=== PATIENT | female | born 1985 | race Caucasian/White ===

== ENCOUNTER 2018-07-16 10:42 | Inpatient (IN) | payer OTHER ==
[~2018-07-16] VITALS: Ht 177.8 cm; Wt 123.4 kg
[~2018-07-16 10:42] MED LIST: VITA1CAP48 PO
[2018-07-16] MEDS ORDERED: LR(*) 1000 ML BAG 1,000 ML IV PRN (10:44)
[2018-07-16 11:00] VITALS: BP 176/114; Ht 177.8 cm; Wt 123.4 kg
[2018-07-16] MEDS ORDERED: MISOPROSTOL 100 MCG TAB PV ONE (11:00)
[2018-07-16] MEDS ORDERED: MISOPROSTOL 200 MCG TAB PV ONE ×2 (11:15→17:40)
[2018-07-16 11:33] LABS: PLATELET COUNT, AUTOMATED 240 K/uL (150-450)
--- NOTE | 2018-07-16 11:48 | History & Physical ---
History of Present Illness Chief Complaint demise History of Present Illness 33-year-old at 26w2d by LMP presents to discuss possible transfer of care in . She is also having off-and-on spotting since 16 weeks. Her prenata care so far has been with [facility] in [place]. She has a strange description of her care so far. She has never felt movement. She has no preeclampsia symptoms. At 16 weeks, she had an ultrasound due to bleeding. She was diagnosed with a subchorionic hemorrhage at that time. Her next follow-up was at 20 weeks, when she had her anatomical ultrasound. She reports she was unable to hear the heart rate at that visit. The special procedures tech reportedly could not identify multiple aspects of the baby, such as the brain and cord. However, the physician informed the patient that this would not be necessary to view. She has not had a visit since that time which was 6 weeks ago. She is still having off-and-on brown spotting. She denies any fevers or chills. She denies any pelvic pain. She does have one adopted son, Drake. She and her went through this adoption process and had multiple last minute change of mines with potential babies. They had initially planned to adopt another child, but did not feel emotionally prepared for that process again. Therefore, they stopped control and were able to conceive within 2 months. 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 Willem, her , works in admission at [employer]. records reviewed: LMP 01/13/18 10wk US shows size consistent with EDC by LMP 16wk US shows BRIANDA with FCA 20wk US shows normal anatomy except inability to visualized intracranial anatomy or cord insertion; no FCA documented Blood pressures: 128/84 (03/21) and 130/86 (06/04) Prepregnancy weight 280# History Patient's Blood Type: A Positive Rubella Status: Unknown Group B Strep Screen: Unknown Obstetrical History: (has one adopted child) Past Medical History: PMH: Obesity PSH: [place] tooth, stefania, bone surgery Allergies: Coded Allergies: No Known Drug Allergies (Unverified , 01/08/14) Social History: No T/E/D. . Family History: FH: diabetes mellitus maternal grandmother FHx: stroke paternal grandfather Med Rec Home Meds Discontinued Reported Medications Vitamins A And D (VITAMIN A AND D) 1 Each Capsule, 1 EACH PO, CAPSULE 01/08/14 Review of Systems Constitutional: No Fever Neurological: No Syncope Eyes: No Vision Change Cardiovascular: No Chest Pain Respiratory: No Shortness of Breath, No Cough Gastrointestinal: No Nausea, No Vomiting, No Diarrhea Genitourinary: No Dysuria Musculoskeletal: No Pain Psychiatric: No Depression, No Anxiety Exam General Exam Vital Signs VS reviewed (BP elevated) General Apperance: Alert/Awake/No Acute Distress Neuro: No Gross deficits Eyes: Normal Extraocular Movement & Vison Cardiovascular: Regular Rate and Rhythm Respiratory: No Respiratory Distress, Clear to Auscultation Abdomen: Soft, Non-Tender, Non-Distended : Normal Musculoskeletal: No Weakness/Pain Extremities: No Cyanosis,Clubbing or Edema Integumentary: Skin Intact without Lesions or Rash Psychological: Alert & Oriented X3, Appropriate Mood & Affect Medical Decision Making Data Points Result Diagram: 07/16/18 1121 07/16/18 1121 Assessment and Plan Problems: (1) Spontaneous in second trimester Assessment & Plan: 33-year-old at 26w2d by LMP presents with intrauterine demise. Her most recent ultrasound was at 20 weeks, at which time she did not hear the heart rate herself but the tech told her everything looked normal. I suspect the fetus did not make it much beyond that point. On today's ultrasound, there is no fluid around the fetus and it is too difficult to measure anything but the head. However, the head is collapsing and measures consistent with 16 weeks. There is no cardiac activity. These findings are consistent with a spontaneous . I discussed the recommendation to proceed with induction of labor with Cytotec. Will place 400mcg vaginally. (2) Elevated blood pressure complicating in second trimester, antepartum Assessment & Plan: She has severely high blood pressures today. Upon admission, we will evaluate blood work and urine for possible preeclampsia. CECI TAVERA MD Jul 16, 2018 11:48
[2018-07-16] MEDS ORDERED: ONDANSETRON 4 MG/2 ML VIAL IVP PRN (12:20)
[2018-07-16] MEDS ORDERED: fentaNYL CITR 100 MCG/2 ML AMP IVP PRN (12:20)
[2018-07-16] MEDS ORDERED: NIFEdipine 10 MG CAP PO ONE ×2 (12:25→21:30)
[2018-07-16] MEDS ORDERED: NIFEdipine XL 30 MG TABCR PO SCH (14:00)
[2018-07-16] MEDS ORDERED: MISOPROSTOL 25 MCG CAP PV PRN ×2 (17:35→23:10)
--- NOTE | 2018-07-16 17:51 | Labor Progress Note ---
Labor Subjective Progress Notes Subjective Pt feels comfortable with minimal cramping. Labor Objective Vital Signs VS reviewed Cervical Dialation: 0 Cervical Effacement (%): 60 Cervical Consistency: Moderate Cervical Position: Posterior General Exam General Appearance: Alert/Awake/No Acute Distress Abdomen: Soft, Non-Tender, Non-Distended, Gravid - Non-Tender Extremities: No Cyanosis,Clubbing or Edema Integumentary: Skin Intact without Lesions or Rash Psychological: Alert & Oriented X3, Appropriate Mood & Affect Other Result Diagram: 07/16/18 1121 07/16/18 1121 Assessment and Plan Problems: (1) Spontaneous in second trimester Assessment & Plan: Additional cytotec 400mcg placed vaginally. Will also administer 200mcg orally since vaginal tablets remain whole at this time. (2) Elevated blood pressure complicating in second trimester, antepartum Assessment & Plan: BP improved since procardia, still elevated but not severe. Monitor closely. No e/o preeclampsia based on normal Pr:Cr ratio. CECI TAVERA MD Jul 16, 2018 17:50
[2018-07-16] MEDS: MISOPROSTOL 200 MCG TAB PO PRN ×2 (19:16→23:17)
[2018-07-16] MEDS ORDERED: LABETALOL HCL 100 MG/20ML VIAL IVP ONE (20:35)
[2018-07-16] MEDS ORDERED: OXYTOCIN 30 UNIT/D5LR 500 ML 0 ML ONE (20:50)
[2018-07-16] MEDS ORDERED: NIFEdipine 10 MG CAP PO PRN (21:05)
[2018-07-16] MEDS ORDERED: MISOPROSTOL 200 MCG TAB PV SCH (23:10)
--- NOTE | 2018-07-16 23:14 | Labor Progress Note ---
Labor Subjective Progress Notes Subjective Pt is still not feeling much for pain. She is having rare menstrual type cramp. Minimal vaginal bleeding is happening now. Labor Objective Vital Signs Vital Signs Date Time Temp Pulse Resp B/P (MAP) Pulse Ox O2 Delivery O2 Flow Rate FiO2 07/16/18 11:00 99.8 85 18 176/114 (134) 95 Room Air Vaginal Discharge/Fluid?: Bloody Show General Exam General Appearance: Alert/Awake/No Acute Distress : Other (cervix not reached as it is posterior and pt is too uncomfortable with exam) Musculoskeletal: No Weakness/Pain Extremities: No Cyanosis,Clubbing or Edema Integumentary: Skin Intact without Lesions or Rash Psychological: Alert & Oriented X3, Appropriate Mood & Affect, Other (Tearful) Other Result Diagram: 07/16/18 1121 07/16/18 1121 Assessment and Plan Problems: (1) Spontaneous in second trimester Assessment & Plan: Will administer a second dose of oral cytotec 200mcg and a 3rd dose of vaginal cytotec 400mcg. Pt is starting to lose energy and focus. She is very sad. They are not bahai. She will try to rest after these next doses are administered. (2) Elevated blood pressure complicating in second trimester, antepartum Assessment & Plan: No e/o preeclampsia based on normal Pr:Cr ratio. She was not very responsive to Labetalol IV. Procardia po is working well. Will continue with Procardia XL 60mg in the morning. CECI TAVERA MD Jul 16, 2018 23:14
--- NOTE | 2018-07-17 02:12 | OB Delivery Note ---
Delivery Note Vaginal Delivery Type: Spont. Vaginal Delivery Delivery Date: Jul 17, 2018 Delivery Time: 00:54 Delivery Anesthesia: IV Opiate Infant Sex: Female [place] Apgars: 1 Minute (0) Estimated Blood Loss: 100 CECI TAVERA MD Jul 17, 2018 02:12
[2018-07-17] MEDS ORDERED: APAP/HYDROCODONE 325/5 TAB PO PRN (02:20)
[2018-07-17] MEDS ORDERED: INFLUENZA VIRUS VAC 0.5ML SYR IM ONLY ONE (02:20)
[2018-07-17] MEDS ORDERED: ACETAMINOPHEN 325 MG TAB PO PRN (02:20)
[2018-07-17] MEDS ORDERED: IBUPROFEN 800 MG TAB PO SCH (02:20)
[2018-07-17] MEDS ORDERED: LOR5/325 PO (02:21)
--- NOTE | 2018-07-17 02:24 | OB/GYN Discharge Summary ---
Discharge Summary Reason for Hosp/Final Diag: (1) Spontaneous in second trimester Hospital Course & Plan: Pt delivered the fetus and placenta at one time. She is doing well. Will discharge to home with Procardia XL 60mg daily. She will check BP at home twice daily and call if consistently >160/110. Otherwise, follow up 07/18 for BP check and next week for follow up prior to going to [place] for a conference. (2) Elevated blood pressure complicating in second trimester, antepartum Lates Vital Signs Vital Signs Date Time Temp Pulse Resp B/P (MAP) Pulse Ox O2 Delivery O2 Flow Rate FiO2 07/16/18 11:00 99.8 85 18 176/114 (134) 95 Room Air Weight (Pounds): 272 Result Diagram: 07/16/18 1121 07/16/18 1121 Condition: Improved Discharge: Home, Self Shelter Meds Active Scripts Hydrocodone Bit/Acetaminophen (HYDROCODON-ACETAMINOPHEN 5-325) 1 Each Tablet, 1 EACH PO Q6H PRN for pain, #10 TAB 0 Refills Prov:CECI TAVERA MD 07/17/18 Discontinued Reported Medications Vitamins A And D (VITAMIN A AND D) 1 Each Capsule, 1 EACH PO, CAPSULE 01/08/14 Follow up Referrals: [facility] - 07/18/18 @ [facility] with CECI TAVERA MD Discharge Diet: As Tolerates Discharge Activity: Pelvic Rest CECI TAVERA MD Jul 17, 2018 02:24
[2018-07-17] MEDS ORDERED: NIFEdipine XL 30 MG TABCR PO SCH (06:00)
[2018-07-17] MEDS ORDERED: NIFE30TA92 PO (08:17)
--- NOTE | 2018-07-19 11:28 | DELIVERY NOTE ---
DELIVERY DATE: July 17, 2018 SURGEON: Nadya Hurtado MD ANESTHESIA: IV Fentanyl PREOPERATIVE DIAGNOSIS Second trimester spontaneous . POSTOPERATIVE DIAGNOSIS 1. Second trimester spontaneous . 2. Delivery of a nonviable female fetus. PROCEDURE Spontaneous vaginal delivery. INDICATIONS FOR PROCEDURE This patient is a 33-year-old 1, para 0 who presented at 26 weeks and 2 days by last menstrual period to discuss the possible transfer of care and . She had reported a subchorionic hemorrhage noted with her care thus far and was having off and on spotting. During evaluation, she was found to have a second trimester spontaneous . The ultrasound revealed a fetus consistent with a demise without any amniotic fluid surrounding the baby. The head was collapsing and measured consistent with 16 weeks. However, additional measurements were unable to be obtained due to the lack of clarity of the ultrasound. She therefore was admitted and received multiple doses of vaginal and oral Cytotec. At one point, she was starting to feel significant discomfort and asked for Fentanyl through the IV. Once she received this she went to the bathroom due to a sensation of pressure. PROCEDURE The patient had gone to the restroom and passed some tissue in the toilet. She was led back to her bed. The tissue that she passed was brought out of the toilet and evaluated. The entire placenta attached to the amniotic sac with a nonviable fetus within the sac were all grossly examined. The sac around the baby was densely adhered to the baby. This was opened up and the fetus was removed and the umbilical vanessa was cut. The fetus was evaluated and did appear to be consistent with female gender. The fetus was significantly deteriorated with a foul smell. The placenta itself appeared to be completely intact. I suspect that there was a significant placental abruption which may have caused the demise of this fetus. The patient's bleeding slowed down significantly immediately after the procedure. She recovered well in Labor and Delivery. Cultures of the placenta were obtained and sent to pathology. The placenta and fetus will be sent to pathology as well. MARYANN
== END 2018-07-17 02:30 | disposition home or self-care (01) | DRG 805 ==
LOC: L&D 10:42 → EDSTATUS 10:43 → OB 10:43
PROVIDERS: ADMIT Obstetrics & Gynecology; ATTEND Obstetrics & Gynecology
PROC: 10E0XZZ Delivery of Products of Conception, External Approach (ICD-10-PCS; principal; 2018-07-16)
PROC: 3E0P7VZ Introduction of Hormone into Female Reproductive, Via Natural or Artificial Opening (ICD-10-PCS; 2018-07-16)
DX: O36.4XX0 Maternal care for intrauterine death, not applicable or unspecified (principal); O45.92 Premature separation of placenta, unspecified, second trimester; Z37.0 Single live birth; O13.4 Gestational [pregnancy-induced] hypertension without significant proteinuria, complicating childbirth; Z3A.26 26 weeks gestation of pregnancy; Z90.49 Acquired absence of other specified parts of digestive tract
CPT/HCPCS: 36415; 81001; 82040; 82247; 82310; 82374; 82435; 82565; 82570; 82947; 84075; 84132; 84155; 84156; 84295; 84443; 84450; 84460; 84520; 85025; 86703; 86762; 86850; 86900; 86901; 87071; 87073; 87077; 87186; 87340; 88307; J3010; J3490

== ENCOUNTER → 2018-07-18 | Outpatient (CLI) | payer OTHER ==
[2018-07-16 11:00] VITALS: BMI 39.0
[~2018-07-18] MED LIST changes: +LOR5/325 PO; +NIFE30TA92 PO
== END ==
LOC: LAB 10:31
PROVIDERS: ATTEND Obstetrics & Gynecology
DX: O03.9 Complete or unspecified spontaneous abortion without complication (principal); O16.2 Unspecified maternal hypertension, second trimester
CPT/HCPCS: 36415; 81240; 81241; 85300; 85303; 85306; 85610; 85613; 85730; 86147; 86592; 86747

== ENCOUNTER → 2019-02-20 | Outpatient (CLI) | payer OTHER ==
[2018-07-16 11:00] VITALS: BMI 39.0
[~2019-02-20] MED LIST changes: +CALC500T6 PO; +PREN-127 PO
--- NOTE | 2019-02-20 15:45 | RADIOLOGY IMAGING REPORT ---
FACILITY: [facility] PATIENT NAME: Karoline Daugherty : 1985 MR: [id number] V: [id number] EXAM DATE: ORDERING PHYSICIAN: CECI TAVERA TECHNOLOGIST: Location: [facility] Patient: Karoline Duagherty : 1985 Visit/Account:[id number] Date of Sevice: 02/20/2019 [facility] [place] HISTORY: irregular menses TECHNIQUE: Transvaginal ultrasound pelvis. COMPARISON: CT January 08, 2014 FINDINGS: Uterus: ; 9.4 cm length x 5.5 cm AP x 7.3 cm transverse. Myometrium: There are two solid hypoechoic masses likely representing fibroids anterior uterine body and lower uterine segment measuring 1.8 x 2 x 1.7 cm and 2.3 x 3.1 x 1.4 cm. There is an additional 2.2 x 2.1 x 1.1 cm ovoid solid mass projecting from the posterior aspect the lower uterine segment.. Endometrium: Unremarkable; double thickness 7 mm. Cervix: Nabothian cysts. Ovaries: Right - 6.8 x 4.4 x 4.3 cm. There are two dominant cysts in the right ovary one measuring 6 cm in diameter one measuring 3.4 cm in diameter Left - 2.8 x 2.3 x 2.1 cm Blood flow is documented in each ovary by duplex Doppler ultrasound. Adnexa: Grossly unremarkable. Free pelvic fluid: None. IMPRESSION: At least three uterine fibroids are demonstrated as described above. The largest measures 3.1 cm in diameter 2. Dominant right ovarian cysts. The largest measures 6 cm in diameter Report Dictated By: Ann Marie Finnegan MD at 02/20/2019 3:36 PM Report E-Signed By: Ann Marie Finnegan MD at 02/20/2019 3:39 PM WSN:[email or web address]
== END ==
LOC: RAD 14:38
PROVIDERS: ATTEND Obstetrics & Gynecology
DX: Z02.9 Encounter for administrative examinations, unspecified (principal)

== ENCOUNTER → 2019-02-20 | Outpatient (CLI) | payer OTHER ==
[2018-07-16 11:00] VITALS: BMI 39.0
== END ==
LOC: RAD 14:36
PROVIDERS: ATTEND Obstetrics & Gynecology
DX: Z02.9 Encounter for administrative examinations, unspecified (principal)

== ENCOUNTER → 2019-04-14 | Outpatient (CLI) | payer OTHER ==
[2018-07-16 11:00] VITALS: BMI 39.0
== END ==
LOC: LAB 15:08
PROVIDERS: ATTEND Surgery
DX: L72.11 Pilar cyst (principal)
CPT/HCPCS: 88305

== ENCOUNTER → 2019-04-17 | Outpatient (CLI) | payer OTHER ==
[2018-07-16 11:00] VITALS: BMI 39.0
--- NOTE | 2019-04-17 10:13 | RADIOLOGY IMAGING REPORT ---
FACILITY: [facility] PATIENT NAME: Karoline Daugherty : 1985 MR: [id number] V: [id number] EXAM DATE: ORDERING PHYSICIAN: CECI TAVERA TECHNOLOGIST: Location: [facility] Patient: Karoline Daugherty : 1985 Visit/Account:[id number] Date of Sevice: 04/17/2019 [facility] [place] H[place]ORY: follow up to right ovarian cyst TECHNIQUE: Transvaginal ultrasound pelvis. COMPARISON: February 20, 2019 FINDINGS: Uterus: ; 9.1 cm length x 5.5 cm AP x 7.9 cm transverse. Myometrium: Along the anterior aspect of the low to mid uterus there is a 3 x 1.9 x 3.6 cm hypoechoic mass likely representing an intramural fibroid.. Along the anterior mid uterus slightly to the left is a 1.8 x 1.4 x 1.9 cm hypoechoic mass likely rep resenting an intramural fibroid. Along the posterior aspect of the lower uterus is a 2.1 x 1.3 x 1.8 cm well-circumscribed hypoechoic mass likely representing an intramural fibroid In the mid uterus is a 1.7 x 1.5 x 1.7 cm hypoechoic mass likely representing an intramural fibroid Endometrium: Unremarkable; double thickness 11.7 mm. Cervix: Nabothian cysts. Ovaries: Right - 5.1 x 3.3 x 3.9 cm. There is a 2.3 x 2.2 x 2.2 cm simple right ovarian cyst. The previ ously noted 6 cm right ovarian cyst is no longer seen Left - 3.4 x 3.3 x 2.9 cm containing follicular cysts Blood flow is documented in each ovary by duplex Doppler ultrasound. Adnexa: Grossly unremarkable. Free pelvic fluid: None. IMPRESSION: Four uterine fibroids are now demonstrated as described above the largest measuring approximately 3.6 in meters in diameter Previously noted six and meter right ovarian cyst is no longer seen. The largest right ovarian cyst now measures 2.3 cm in diameter Report Dictated By: Ann Marie Finnegan MD at 04/17/2019 9:58 AM Report E-Signed By: Ann Marie Finnegan MD at 04/17/2019 10:06 AM WSN:[email or web address]
== END ==
LOC: RAD 08:04
PROVIDERS: ATTEND Obstetrics & Gynecology
DX: Z02.9 Encounter for administrative examinations, unspecified (principal)